=== PATIENT | female | born 1965 ===

== ENCOUNTER 2021-07-10 11:15 | Inpatient (IN) | payer OTHER ==
[~2021-07-10] VITALS: Ht 162.6 cm; Wt 129.3 kg
[2021-07-10] MEDS ORDERED: ZESTRIL40 M1 PO (13:47)
[2021-07-10] MEDS ORDERED: LEVOTHYROXINE25 MCG PO (13:48)
[2021-07-17] MEDS ORDERED: XARELTO10 MG PO (06:00)
[2021-07-17] MEDS ORDERED: INTEGRA PLUS C1 EACH PO (06:00)
[2021-07-17] MEDS ORDERED: OXYC1TAB9 PO (06:00)
[2021-07-17] MEDS ORDERED: BACTRIM DS TAB1 EACH PO (06:00)
== END 2021-07-17 21:57 | DRG 470 ==
LOC: SURH 07-15 07:00 → O/R 07-15 07:25 → SURG 07-15 07:25 → SURH 07-15 11:15 → SURG 07-15 19:11
PROVIDERS: ADMIT Orthopaedic Surgery Sports Medicine; ATTEND Orthopaedic Surgery Sports Medicine
PROC: 0SRC0J9 Replacement of Right Knee Joint with Synthetic Substitute, Cemented, Open Approach (ICD-10-PCS; principal; 2021-07-15 07:00)
DX: M17.11 Unilateral primary osteoarthritis, right knee (principal)